=== PATIENT | female | born 1965 | race Caucasian/White ===

== ENCOUNTER 2018-11-27 16:50 | Emergency (ER) | payer OTHER, SELFPAY ==
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
[2018-11-27 16:59] VITALS: BP 138/77; PULSE 68; RESP 16; TEMP 37; O2SAT 97
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
--- NOTE | 2018-11-27 18:30 | NUR.NOTE ---
pt provided with ice at 1730
[2018-11-27 18:50] VITALS: BP 136/70; PULSE 68; RESP 17; TEMP 37; O2SAT 98
== END 2018-11-27 19:02 | disposition home or self-care (01) ==
PROVIDERS: Emergency Provider Physician Assistant; PCP Internal Medicine
DX: S60.212A Contusion of left wrist, initial encounter (principal); M79.642 Pain in left hand; V53.5XXA Driver of pick-up truck or van injured in collision with car, pick-up truck or van in traffic accident, initial encounter
CPT/HCPCS: 99283; 73110; 73130; 99282